=== PATIENT | male | born 1985 | race Caucasian/White ===

== ENCOUNTER 2020-12-17 22:37 | Emergency (ER) | payer SELFPAY | END 2020-12-17 23:33 | disposition home or self-care (01) | LOC: MADERS 22:37 | DX: N48.89 Other specified disorders of penis (principal) | CPT/HCPCS: 87252; 99283 ==

== ENCOUNTER 2021-07-08 22:56 | Emergency (ER) | payer SELFPAY ==
[2021-07-08] MEDS ORDERED: Ketorolac Tromethamine 60 MG/2 ML VIAL ONE (23:47)
[2021-07-08] MEDS ORDERED: Sulfameth/Trimethoprim DS 800-160mg TAB ONE (23:47)
[2021-07-08] MEDS ORDERED: Boostrix 0.5 ML (Tdap) VIAL ONE (23:52)
== END 2021-07-09 00:15 | disposition home or self-care (01) ==
LOC: MADERS 22:56
DX: S50.312A Abrasion of left elbow, initial encounter (principal); M70.22 Olecranon bursitis, left elbow; W22.8XXA Striking against or struck by other objects, initial encounter; Z79.899 Other long term (current) drug therapy
CPT/HCPCS: 90471; 90715; 96372; J1885

== ENCOUNTER 2021-08-24 18:05 | Emergency (ER) | payer OTHER, SELFPAY ==
[2021-08-24] MEDS ORDERED: Bacitracin 1 PK ONE (18:31)
[2021-08-24] MEDS ORDERED: Lidocaine 1% w/Epinephrine 1:100K 20 ML VIAL ONE (18:31)
== END 2021-08-24 19:29 | disposition home or self-care (01) ==
LOC: MADERS 18:05
DX: S51.811A Laceration without foreign body of right forearm, initial encounter (principal); S93.401A Sprain of unspecified ligament of right ankle, initial encounter; S80.211A Abrasion, right knee, initial encounter; F17.210 Nicotine dependence, cigarettes, uncomplicated; V89.2XXA Person injured in unspecified motor-vehicle accident, traffic, initial encounter
CPT/HCPCS: 12002

== ENCOUNTER 2023-03-27 09:24 | Emergency (ER) | payer BC, SELFPAY | END 2023-03-27 10:11 | disposition home or self-care (01) | LOC: MADERS 09:24 | DX: J06.9 Acute upper respiratory infection, unspecified (principal); J01.00 Acute maxillary sinusitis, unspecified; F17.200 Nicotine dependence, unspecified, uncomplicated; F17.290 Nicotine dependence, other tobacco product, uncomplicated | CPT/HCPCS: 99283 ==

== ENCOUNTER 2023-08-06 16:56 | Emergency (ER) | payer BC ==
[2023-08-06] MEDS ORDERED: Ketorolac Tromethamine 30 MG (1 mL) VIAL ONE (17:48)
== END 2023-08-06 17:50 | disposition home or self-care (01) ==
LOC: MADERS 16:56
DX: M54.42 Lumbago with sciatica, left side (principal); F17.290 Nicotine dependence, other tobacco product, uncomplicated; F17.200 Nicotine dependence, unspecified, uncomplicated
CPT/HCPCS: 96372; 99283; J1885

== ENCOUNTER 2023-08-09 23:42 | Emergency (ER) | payer BC ==
[2023-08-10] MEDS ORDERED: Ketorolac Tromethamine 30 MG (1 mL) VIAL ONE (00:11)
== END 2023-08-10 00:31 | disposition home or self-care (01) ==
LOC: MADERS 23:42
DX: M54.32 Sciatica, left side (principal); F17.200 Nicotine dependence, unspecified, uncomplicated; F17.290 Nicotine dependence, other tobacco product, uncomplicated
CPT/HCPCS: 96372; 99283; J1885